=== PATIENT | male | born 1990 | race Caucasian/White ===

== ENCOUNTER → 2019-08-19 | Outpatient (CLI) | payer OTHER ==
[~2019-08-19] MED LIST: ACET325T9 PO; CYCL10TA2 PO; METH-38 PO; NAPR500T8 PO
--- NOTE | 2019-08-19 20:18 | PAIN ---
DATE OF SERVICE: 08/19/2019 PROGRESS NOTE FOR PAIN CLINIC CHIEF COMPLAINT: Low back and left greater than right bilateral lower extremity pain. HISTORY OF PRESENT ILLNESS: This is a 29-year-old male who presents with history of pain in the low back for several years since 2011. The patient reports he has been dealing with this one degree or another, it has been too multiple physical therapies over the years, multiple modalities of anti-inflammatories, stretching and strengthening exercises as well as chiropractic treatments. The patient reports he feels better for a day or two after each of these, but not any longer. The patient reports the pain as in the low back, bilateral lower extremities, posterior gluteus, posterior thighs, more on the left than the right, but present bilaterally into the calves as well as into the feet. The patient reports about his feet can be numb, described as constant sharp, throbbing and shooting, radiating, changes during the day, worse with activity, standing, walking, changing positions, better with sitting or lying down. The patient reports it awakens him from sleep at least twice at night, it does not affect his bowel or bladder control or his ability to walk, specifically, again he has had physical therapy, chiropractic treatment, doing exercise currently, all these which have been only mildly decreasing the pain temporarily. The patient tried methocarbamol, naproxen, Voltaren gel, pain patches, all of which have not been successful. The patient rates his disability rate from 0-10, 10 at worst, is a 5 with family home responsibilities, social activity, 7 with recreation, 6 with occupational activities, 4 with sexual behavior, self-care and life support activities. The patient had MRI scan of the lumbar spine these were ____ showing L5-S1 disk desiccation with loss of vertebral body height and moderate sized central left paracentral disk protrusion touching the left descending S1 and exiting left L5 nerve root. PAST MEDICAL HISTORY: Significant for arthritis only. PREVIOUS SURGERY: Include wisdom teeth extraction, tonsillectomy. CURRENT MEDICATIONS: Include cyclobenzaprine, methocarbamol, naproxen, and acetaminophen. ALLERGIES: The patient has no known drug allergies. FAMILY HISTORY: Significant for no major medical problems or conditions that he is aware of. SOCIAL HISTORY: The patient does not drink alcohol, does not smoke, does not use any illegal, illicit or recreational drugs. He is , lives with his spouse, lives locally in [place], [place], is [employer]. REVIEW OF SYSTEMS: The patient's review of systems is positive for those items mentioned in history of present illness. All systems reviewed and otherwise negative. It is complete, full and well documented on the patient's chart. PHYSICAL EXAMINATION: VITAL SIGNS: The patient's blood pressure 145/83, pulse 60, respirations 16, temperature 98.1 degrees Fahrenheit, height is 69 inches, weighs 199 pounds. GENERAL: The patient is awake, alert, oriented, appropriate, very pleasant demeanor. HEENT: Head shows normocephalic, atraumatic. Extraocular movements are intact and symmetrical. Oral cavity: Mucous membranes moist and pink. Dentition is intact. NECK: Shows anterior throat supple without palpable lymphadenopathy noted. Swallow reflex symmetrical. CHEST: Shows normal on inspection. Breath sounds are clear to auscultation bilaterally. HEART: Shows S1, S2 clear. No murmurs auscultated. ABDOMEN: Soft, nontender, nondistended. No palpable organomegaly is noted. No rebound or guarding demonstrated. BACK: Shows spine grossly in the midline. Normal appearing thoracic kyphosis and lumbar lordotic curvature. Lumbar paraspinous muscle shows symmetrical on inspection, on palpation shows moderate tenderness diffusely bilaterally, going without significant radiation. The patient has good rotational motion of lumbar spine, both laterally as well as extension and flexion without difficulty. No tenderness over the spinous processes, sacrum or sacroiliac regions. EXTREMITIES: Lower extremities show deep tendon reflexes 2+ in the patellar, 1+ tendo-calcaneus tendons are equal. Motor exam is strong with 5/5 dorsiflexion, extension, quadriceps and hamstring flexion symmetrical. Peripheral pulses are 1+ posterior tibia. No peripheral edema is noted bilaterally. The patient will stand, stand on his toes without difficulty or loss of balance, is walking with a normal appearing gait, is not using any assistive devices to ambulate. SKIN: Shows warm and dry, good turgor. No edema. No sores, rashes or bruising throughout. IMPRESSION: 1. This is a 29-year-old male with a long history approximately 7 years of low back, bilateral lower extremity pain, left greater than right in a radicular fashion following an L5-S1 dermatomal distribution. 2. MRI scan of lumbar spine as noted. 3. History of arthritis. PLAN: Options were discussed with the patient including conservative medical managements, physical therapies and interventional techniques. He would like to pursue interventional techniques. We discussed a lumbar epidural steroid injection using description as well as anatomical models to describe the procedure. The patient would like to proceed. We will wait for preauthorization with insurance provider. Once this is obtained, we let him return to the clinic for a lumbar epidural steroid injection at that time at L5-S1 level. The patient will try Medrol Dosepak in the meantime, was given instruction as well as side effects to be aware of with the medication and will follow up as scheduled. DAVIAN HERNANDEZ MD DR: YOLY/nts JOB#: [id number] / [id number]
== END | disposition home or self-care (01) ==
LOC: PNCL 14:32
PROVIDERS: ATTEND Anesthesiology
DX: M54.5 Low back pain (principal); M79.604 Pain in right leg; M79.605 Pain in left leg; M19.90 Unspecified osteoarthritis, unspecified site; Z79.899 Other long term (current) drug therapy
CPT/HCPCS: G0463

== ENCOUNTER → 2019-08-27 | Outpatient (CLI) | payer OTHER ==
[~2019-08-27] MED LIST changes: +IOHEXOL 180 MG/ML 10 ML VIAL. ONE; +methylPREDNISolone ACETATE 40 MG/ML VIAL. ONE; +methylPREDNISolone ACETATE 80 MG/ML VIAL. ONE
--- NOTE | 2019-08-27 16:26 | PAIN ---
DATE OF SERVICE: 08/27/2019 PROGRESS NOTE FOR PAIN CLINIC DIAGNOSES: Lumbar radiculopathy with lumbar degenerative disk disease. HISTORY OF PRESENT ILLNESS: The patient is a 29-year-old male who returns for followup status post initial evaluation and preauthorization for lumbar epidural steroid injection. The patient obtained that now and would like to proceed. The patient reports still significant pain in the low back, bilateral lower extremities, posterior gluteus, posterior thighs, posterior calf; worse in the back and upper hips and legs. The patient reports it is aching, shooting, stabbing, constant with activity, walking, standing, changing positions, better with sitting or lying down, but still awakens him from sleep about every 5-6 hours occasionally. The patient reports not every night. The patient reports it is an 8 on a scale of 10 at its worst over the past week, 6 on average, 4 at its least and is a 6 today. The patient reports no new motor or sensory deficits, no new bowel or bladder incontinence or other complaints. PHYSICAL EXAMINATION: VITAL SIGNS: The patient's blood pressure 124/82, pulse 63, respirations 18, temperature 98.2 degrees Fahrenheit, height is 69 inches, weight is 198 pounds. GENERAL: The patient is awake, alert, oriented, appropriate, very pleasant demeanor. HEENT: Shows normocephalic, atraumatic. Extraocular movements are intact and symmetrical. Oral cavity: Mucous membranes moist and pink. Dentition is intact. NECK: Shows anterior throat supple without palpable lymphadenopathy noted. Swallow reflex symmetrical. CHEST: Shows normal on inspection. Breath sounds clear to auscultation bilaterally. HEART: Shows S1, S2 clear. No murmurs auscultated. ABDOMEN: Soft, nontender, nondistended. No palpable organomegaly is noted. No rebound or guarding demonstrated. BACK: Shows spine grossly in the midline. Normal appearing thoracic kyphosis and lumbar lordotic curvature. Lumbar paraspinous muscle shows symmetrical on inspection, on palpation shows some moderate tenderness diffusely, but only diffusely without significant radiation. EXTREMITIES: The patient's lower extremities show deep tendon reflexes 2+ in the patellar, 1+ tendo-calcaneus tendons. Motor exam is strong with 5/5 dorsiflexion, extension, quadriceps and hamstring flexion and symmetrical. Peripheral pulses are 1+ posterior tibia. No peripheral edema is noted bilaterally. Options were discussed with the patient. The patient's old chart was reviewed as his current medication regimen updated. Current review of systems updated today as well. We will proceed with a lumbar epidural steroid injection today with fluoroscopic guidance. Risks were again discussed including, but not limited to bleeding, infection, possibility of epidural hematoma, subsequent neurological compromise, dural puncture, headaches, spinal cord and/or nerve damage, side effects of steroid medication and poor results regarding pain control. The patient understands and wished to proceed. The patient will return to clinic in approximately 2 weeks for followup. She was counseled on return appointment, activity level and side effects to be aware of. DIAGNOSIS: Lumbar radiculopathy with lumbar degenerative disk disease. PROCEDURE: Lumbar epidural steroid injection, translaminar approach L5-S1 level using C-arm fluoroscopic guidance under sterile prep and drape using local anesthetic. MEDICATION INJECTED: A total of 120 mg Depo-Medrol plus 10 mL of preservative-free normal saline and 2 mL of contrast. CONDITION AT DISCHARGE: Stable. The patient tolerated procedure well, had no complications. DAVIAN HERNANDEZ MD DR: YOLY/liz JOB#: [id number] / [id number]
== END | disposition home or self-care (01) ==
LOC: PNCL 09:33
PROVIDERS: ATTEND Anesthesiology
DX: M51.16 Intervertebral disc disorders with radiculopathy, lumbar region (principal)
CPT/HCPCS: 62323; J1030; J1040; Q9965

== ENCOUNTER → 2019-09-17 | Outpatient (CLI) | payer OTHER ==
--- NOTE | 2019-09-17 11:35 | PAIN ---
DATE OF SERVICE: 09/17/2019 PROGRESS NOTE FOR PAIN CLINIC DIAGNOSES: Lumbar radiculopathy with lumbar degenerative disk disease. HISTORY OF PRESENT ILLNESS: The patient is a 29-year-old male who returns for followup status post lumbar epidural steroid injection x 1. The patient reports about 25% improved in the low back and bilateral lower extremities. The patient reports no new motor or sensory deficits, still significant pain in the low back radiating to posterior gluteus, posterior thighs, aching and shooting pain, burning and constant in description rated as a 7 on a scale of 10 at its worst over the past week, 5 on average and 3 at its least and is a 5 today. The patient reports no new motor or sensory deficits, no new bowel or bladder incontinence or other complaints, but still significant pain mostly with walking, standing, changing positions, better with sitting or lying down, does not awaken him from sleep at night. The patient reports no new motor or sensory deficits, no new bowel or bladder incontinence or other complaints. PHYSICAL EXAMINATION: VITAL SIGNS: Today, the patient's blood pressure is 146/79, pulse is 69, respirations 18, temperature 98.1 degrees Fahrenheit, height is 69 inches, weight is 195 pounds. GENERAL: The patient is awake, alert, oriented, appropriate, very pleasant demeanor. HEENT: Shows normocephalic, atraumatic. Extraocular movements are intact and symmetrical. Oral cavity shows mucous membranes moist and pink. Dentition is intact. NECK: Shows anterior throat supple without palpable lymphadenopathy noted. Swallow reflex symmetrical. CHEST: Shows normal on inspection. Breath sounds clear to auscultation bilaterally. HEART: Shows S1, S2 clear. No murmurs auscultated. ABDOMEN: Soft, nontender, nondistended. No palpable organomegaly is noted. No rebound or guarding demonstrated. BACK: Shows spine grossly in the midline. Normal appearing thoracic kyphosis and lumbar lordotic curvature. Lumbar paraspinous muscle shows symmetrical on inspection, with palpation shows some moderate tenderness diffusely bilaterally going diffusely without significant radiation. EXTREMITIES: The patient's lower extremities show deep tendon reflexes 2+ in the patellar, 1+ tendo-calcaneus tendons. Motor exam is strong with 5/5 dorsiflexion, extension, quadriceps and hamstring flexion symmetrical. Peripheral pulses are 1+ posterior tibia. No peripheral edema is noted bilaterally. Options were discussed with the patient. The patient's old chart was reviewed as his current medication regimen updated. Current review of systems updated today as well. We will proceed with a second in the series of lumbar epidural steroid injection today with fluoroscopic guidance. Risks were again discussed including, but not limited to bleeding, infection, possibility of epidural hematoma, subsequent neurological compromise, dural puncture, headaches, spinal cord and/or nerve damage, side effects of steroid medication and poor results regarding pain control. The patient understands and wished to proceed. The patient will return to clinic in approximately 2 weeks for followup. She was counseled on return appointment, activity level and side effects to be aware of. DIAGNOSIS: Lumbar radiculopathy with lumbar degenerative disk disease. PROCEDURE: Lumbar epidural steroid injection, translaminar approach L5-S1 level using C-arm fluoroscopic guidance under sterile prep and drape using local anesthetic. MEDICATION INJECTED: A total of 120 mg Depo-Medrol plus 10 mL of preservative-free normal saline and 2 mL of contrast. CONDITION AT DISCHARGE: Stable. The patient tolerated procedure well, had no complications. DAVIAN HERNANDEZ MD DR: YOLY/liz JOB#: [id number] / [id number]
== END ==
LOC: PNCL 09:08
PROVIDERS: ATTEND Anesthesiology
DX: M51.16 Intervertebral disc disorders with radiculopathy, lumbar region (principal)
CPT/HCPCS: 62323; J1030; J1040; Q9965